=== PATIENT | female | born 1950 | race Caucasian/White ===

== ENCOUNTER 2022-06-02 17:21 | Emergency (ER) | payer BC ==
[~2022-06-02] VITALS: Ht 147.3 cm; Wt 97.1 kg
[2022-06-02 17:27] VITALS: BP 165/80
--- NOTE | 2022-06-02 19:05 | NUR ---
pt ambulated to bed 06
--- NOTE | 2022-06-02 19:06 | NUR ---
Dr. Ramirez examining patient.
[2022-06-02 19:32] LABS: BASOPHILS % (AUTO) 0.3 % (0.0-2.0); EOSINOPHILS # (AUTO) 0.1 K/uL (0-0.4); HEMATOCRIT 35.8 % (36-48); HEMOGLOBIN 11.6 g/dL (12.0-16.0); LYMPHOCYTES % (AUTO) 16.7 % (20.5-51.1); MEAN CORPUSCULAR HEMOGLOBIN 30 pg (27-31); MEAN CORPUSCULAR HGB CONC 33 g/dL (33-37); MEAN CORPUSCULAR VOLUME 90.9 fL (80-94); MONOCYTES % (AUTO) 8.6 % (1.7-9.3); NEUTROPHILS # (AUTO) 8.6 K/uL (1.8-7.7); NEUTROPHILS % (AUTO) 73.4 % (42.2-75.2); PLATELET COUNT (AUTO) 332 K/uL (140-450); RED BLOOD CELL COUNT(AUTO) 3.93 MIL/uL (4.20-5.40); RED CELL DISTRIBUTION WIDTH 14.9 % (11.6-13.7); WHITE BLOOD COUNT (AUTO) 11.7 K/uL (4.8-10.8)
[2022-06-02 19:53] LABS: ALBUMIN 3.9 g/dL (3.4-5.0); ANION GAP 11.8 (8-16); ASPARTATE AMINOTRANSFERASE 20 U/L (15-37); CARBON DIOXIDE 28.1 mmol/L (21-32); CHLORIDE 104 mmol/L (98-107); CREATININE 0.9 mg/dL (0.6-1.3); GLUCOSE 136 mg/dL (74-106); LIPASE 125 U/L (73-393); POTASSIUM 3.9 mmol/L (3.5-5.1); SODIUM SERUM 140 mmol/L (136-145); TOTAL BILIRUBIN 0.2 mg/dL (0.0-1.0); UREA NITROGEN, BLOOD 25 mg/dL (7-18)
[2022-06-02] MEDS ORDERED: MORPHINE SULFATE 2 MG/ML SYR IM STA (20:06)
--- NOTE | 2022-06-02 20:06 | NUR ---
PT TO CT AT THIS TIME
--- NOTE | 2022-06-02 20:15 | NUR ---
PT BACK FROM CT
[2022-06-02] MEDS ORDERED: MAG355OR2 PO (22:21)
[2022-06-02] MEDS ORDERED: FAMO-90 PO (22:21)
[2022-06-02] MEDS ORDERED: ACET-10509 PO (22:21)
[2022-06-02] MEDS ORDERED: FAMOTIDINE 20 MG TAB PO ONE (22:25)
[2022-06-02] MEDS ORDERED: FAMOTIDINE 20 MG TAB ONE (22:25)
[2022-06-02 22:36] VITALS: BP 151/80
--- NOTE | 2022-06-02 22:36 | NUR ---
Patient discharged with v/s stable. Written and verbal after care instructions given and explained. Patient alert, oriented and verbalized understanding of instructions. Ambulatory with steady gait. All questions addressed prior to discharge. ID band removed. Patient advised to follow up with PMD. Rx of Tylenol, Pepcid and Maalox Maxinum Strength Susp given. Patient educated on indication of medication including possible reaction and side effects. Opportunity to ask questions provided and answered.
== END 2022-06-02 22:36 | disposition home or self-care (01) ==
LOC: MED 17:21
DX: K29.70 Gastritis, unspecified, without bleeding (principal)
CPT/HCPCS: 36415; 74176; 80053; 81002; 83690; 85025; 96372; 99284; J2270